=== PATIENT | female | born 1950 | race Two or more races ===

== ENCOUNTER 2023-07-08 11:20 | Emergency (ER) | payer OTHER ==
[~2023-07-08] VITALS: Ht 162.6 cm; Wt 72.6 kg
[~2023-07-08 11:20] MED LIST: ALEVE220 M1 PO; CEFADROXIL500 MG PO; PERCOCET 5/3251 TAB PO
== END 2023-07-08 18:27 | disposition home or self-care (01) ==
LOC: ER
DX: M54.9 Dorsalgia, unspecified (principal); R53.81 Other malaise; I10 Essential (primary) hypertension
CPT/HCPCS: 96372; 99282; J2360